=== PATIENT | male | born 1985 | race Caucasian/White ===

== ENCOUNTER 2018-07-10 19:56 | Emergency (ER) | payer OTHER ==
[~2018-07-10] VITALS: Ht 200.7 cm; Wt 169.2 kg
[~2018-07-10 19:56] MED LIST: DOXYCYCLINE 10100 M1 PO; NOHOMEMEDICATIONS; NORCO 5-325 TA1 EACH PO
[2018-07-10] MEDS ORDERED: LISINOPRIL10 MG PO (20:12)
[2018-07-10 20:44] LABS: ABSOLUTE EOSINOPHILS 0.5 thou/uL (0.0-0.7); ABSOLUTE LYMPHOCYTES 3.9 thou/uL (0.8-5.3); ABSOLUTE MONOCYTES 0.9 thou/uL (0.0-1.2); ABSOLUTE NEUTROPHILS 5.4 thou/uL (1.6-8.1); BASOPHILS 0.1 %; EOSINOPHILS 4.2 %; HEMATOCRIT 45.1 % (42.0-52.0); HEMOGLOBIN 15.1 gm/dL (14.0-18.0); LYMPHOCYTES 36.6 %; MCHC 33.6 g/dL (28.0-37.0); MCV 86.6 fL (80.0-100.0); MONOCYTES 8.2 %; NUCLEATED RBCS 0 /100WBC; PLATELET COUNT* 330 thou/uL (150-400); POLYS 50.9 %; RBC 5.21 mil/uL (4.50-6.00); RDW-CV 13.6 % (10.5-14.5); WBC 10.7 thou/uL (4.0-11.0)
[2018-07-10 20:55] LABS: PROTIME 10.1 Seconds (9.20-11.50)
[2018-07-10 21:02] LABS: ANION GAP 14 mmol/L (7-16); BUN 20 mg/dL (7-18); CALCIUM 9.3 mg/dL (8.5-10.1); CHLORIDE 100 mmol/L (98-107); CO2 24 mmol/L (21-32); CREATININE 1.2 mg/dL (0.6-1.3); GLUCOSE 100 mg/dL (70-99); POTASSIUM 3.6 mmol/L (3.5-5.1); SODIUM 138 mmol/L (136-145)
[2018-07-10 21:12] LABS: ALKALINE PHOSPHATASE 89 U/L (46-116); NT-PRO BRAIN NAT PEPTIDE < 5 pg/mL (<300); SGOT 20 U/L (15-37); SGPT 45 U/L (30-65); TOTAL BILIRUBIN 0.3 mg/dL (<0.1-1.0); TOTAL PROTEIN 8.9 g/dL (6.4-8.2); TROPONIN-I LEVEL <0.06 ng/mL (<0.06)
[2018-07-10 21:33] LABS: URINE BILIRUBIN NEGATIVE (Negative); URINE BLOOD NEGATIVE (Negative); URINE CLARITY CLEAR; URINE COLOR YELLOW; URINE GLUCOSE-RANDOM NEGATIVE (Negative); URINE KETONES NEGATIVE (Negative); URINE LEUKOCYTES-REFLEX NEGATIVE (Negative); URINE NITRITE-REFLEX NEGATIVE (Negative); URINE PROTEIN NEGATIVE (Negative); URINE SPECIFIC GRAVITY 1.025 (1.005-1.030); URINE UROBILINOGEN 0.2 E.U./dl (0.2-1.0)
[2018-07-10 21:42] VITALS: BP 166/106
--- NOTE | 2018-07-11 12:26 | EKG ---
[place] [address] ELECTROCARDIOGRAM REPORT Name: BEST SERRANO 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 : 1985 Requested By: Zoran Dunlap Order Number: [id number] MD: Fish Celestin Measurements Intervals [place] Rate: 88 P: 14 ND: 161 QRS: -3 QRSD: 101 T: -11 QT: 383 QTc: 464 Interpretive Statements Sinus rhythm Nonspecific T abnormalities, inferior leads ST elev, probable normal early repol pattern No previous ECG available for comparison Electronically Signed On 07-11-2018 12:25:57 TERRAZZO ROLLER by Fish Celestin [email or web address] <ELECTRONICALLY SIGNED> By: Fish Celestin MD, [facility] 07/11/18 1225 32 32 Fish Celestin MD, FACC /EPI
== END 2018-07-10 21:45 | disposition home or self-care (01) ==
LOC: M.ERS 19:56
PROVIDERS: Family Medicine
DX: R42 Dizziness and giddiness (principal); R55 Syncope and collapse; I10 Essential (primary) hypertension; F17.210 Nicotine dependence, cigarettes, uncomplicated